=== PATIENT | female | born 1990 | race African-American/Black ===

== ENCOUNTER 2016-02-18 12:50 | Observation (INO) ==
[2016-02-18 14:40] LABS: MANUAL DIFF NEEDED? NO
[2016-02-18 14:42] LABS: BASO% 0.2 % (0.0-0.8); EOS# 0.05 X1000 (0.0-0.7); EOS% 0.6 % (0.0-10.0); HEMATOCRIT 37.8 % (37.0-47.0); HEMOGLOBIN 12.2 g/dL (12.0-16.0); IMM GRAN# 0.02 X1000 (0.0-0.04); IMM GRAN% 0.2 % (0.0-0.5); LYMPH# 1.55 X1000 (1.2-3.4); LYMPH% 17.5 % (20.5-51.1); MCH 26.2 PG (27-31); MCHC 32.3 g/dL (33-37); MCV 81.3 FL (81-99); MONO% 6.8 % (1.7-9.3); MPV 9.9 FL (7.4-10.4); NEUT% 74.7 % (42.2-75.2); PLT 377 X1000 (130-400); RBC 4.65 XMIL (4.2-5.4)
[2016-02-18 14:53] LABS: URINE CULTURE PL NEEDED? NO; URINE SOURCE CLEAN CATCH
[2016-02-18 15:01] LABS: AGAP 9; ALBUMIN 4.5 g/dL (3.5-5.0); ALKALINE PHOSPHATASE 88 U/L (32-104); BUN 9 mg/dL (8-22); CALCIUM 9.7 mg/dL (8.8-10.2); CHLORIDE 99 mmol/L (98-107); COSMO 269; GOT 18 U/L (10-30); GPT 15 U/L (10-36); POTASSIUM 3.9 mmol/L (3.5-5.1); SODIUM 135 mmol/L (136-145); TCO2 27 mmol/L (25-35); TOTAL PROTEIN 7.9 g/dL (6.3-8.3)
[2016-02-18 15:03] LABS: BILIRUBIN URINE NEGATIVE (NEGATIVE); BLOOD URINE 4+ (NEGATIVE); CLARITY CLEAR (CLEAR); COLOR YELLOW; GLUCOSE URINE NEGATIVE (NEGATIVE); LEUKOCYTES URINE NEGATIVE (NEGATIVE); NITRITE URINE NEGATIVE (NEGATIVE); PROTEIN URINE TRACE mg/dL (NEGATIVE); UROBILINOGEN URINE NORMAL
[2016-02-18 15:12] LABS: URINE EPITHELIAL CELLS <10 /HPF (<10); URINE RBC 20-40 /HPF (<10)
--- NOTE | 2016-02-18 15:32 | PROVIDER DOCUMENTATION ---
HPI-Abdominal Pain/GI Problem - General Source: patient - History of Present Illness-ABD Abdominal Pain Onset Location: reports: RLQ, LLQ, suprapubic Pain Radiation: reports: no radiation Quality of Pain: reports: aching Severity in ED: reports: mild Onset/Duration: reports: this morning Modifying Factors: improves with: nothing Associated Symptoms: reports: denies symptoms <Abran Degroot - Last Filed: 02/18/16 17:21> <Mookie Kolb - Last Filed: 02/18/16 19:48> - General Chief Complaint: Abdominal Pain Stated Complaint: AB PAIN Time Seen by Provider: 02/18/16 15:00 Allergies/Adverse Reactions: Patient Allergies Allergy/AdvReac Type Severity Reaction Status Date / Time No Known Allergies Allergy Verified 02/18/16 13:19 Home Medications: No Home Medications 02/18/16 - History of Present Illness-ABD Nature of Presenting Problems: 25 y/o F presents to the ED c/o lower pain. onset this morning. denies n/v/d and all other symptoms. last bm was last night and it was normal. (Abran Degroot) Review of Systems - Adult - REVIEW OF SYSTEMS - ADULT Constitutional: denies: chills, fever, fatique Eyes: reports: no symptoms reported Ears, Nose, Mouth & Throat: reports: no symptoms reported Cardiovascular: denies: chest pain, palpitations Respiratory: denies: cough, shortness of breath, wheezing Gastrointestinal: reports: abdominal pain. denies: diarrhea, nausea, rectal bleeding, vomiting Musculoskeletal: denies: bone pain, back pain Integumentary: denies: itching, rash <Abran Degroot - Last Filed: 02/18/16 17:21> Past History - Adult - PAST MEDICAL HISTORY-ADULT Review of Records: reports: Nursing Assessment Review, Medications Reviewed, Social history reviewed & non-contributory. Major Childhood Illnesses: reports: denies history <Abran Degroot - Last Filed: 02/18/16 17:21> Physical Exam-General - PHYSICAL EXAM-ADULT Initial Vital Signs Reviewed: Yes - CONSTITUTIONAL General Appearance: alert, no apparent distress - EYES Eyes: PERRL/EOMI, pink conjunctivae - HEAD, EARS, NOSE, MOUTH & THROAT HENMT: moist mucous membranes, normal ENT inspection - NECK Neck: full range of motion, normal inspection - RESPIRATORY Respiratory: lungs clear, normal breath sounds, no respiratory distress, no accessory muscle use - CARDIOVASCULAR Cardiovascular: normal peripheral pulses, regular rate, rhythm - GASTROINTESTINAL (ABDOMEN) Abdominal Exam: normal bowel sounds, soft, tenderness (RLQ). negative: abnormal bowel sounds, distended, hernia, mass - SKIN Integumentary: normal color, warm/dry - PSYCHIATRIC Psych/Mental Status: normal mood/affect, oriented x 3 <Abran Degroot - Last Filed: 02/18/16 17:21> Progress - XRAY 1 XRAY Study: Abdomen Impression: Abnormal (constipation) - CHANGE OF SHIFT REPORT (ED Provider) Report Given and Care Transferred to:: Dr Bunch Time of Transfer: 18:00 Items Pending: CT/MRI Results <Abran Degroot - Last Filed: 02/18/16 17:21> - REASSESSMENT Reassessment #1 Time Reassessed: 19:15 Status: unchanged Reassessment Comment: DR ROSAS AT BEDSIDE CONSULTING WITH PT. - CONSULTS/PCP/HOSPITALIST Notification #1 *Consult/PCP/Hospitalist*: DR ROSAS Time Discussed: 18:05 Reason/Comments: DR MATUTE SPOKE WITH DR ROSAS. DR ROSAS WILL SEE PT IN ED. Consult Disposition: Will see in ED <Mookie Kolb - Last Filed: 02/18/16 19:48> - PLAN OF CARE/RESULTS Progress/Plan/Lab Results: CT scan will be ordered due to the amount of tenderness on exam. (Abran Degroot) Departure <Abran Degroot - Last Filed: 02/18/16 17:21> - Departure Time of Disposition Order: 19:47 Certified Medical Emergency: Emergent <Mookie Kolb - Last Filed: 02/18/16 19:48> - Departure DIAGNOSIS: Acute appendicitis Qualifiers: Acute appendicitis type: unspecified acute appendicitis type Qualified Code(s) : K35.80 - Unspecified acute appendicitis Disposition: ADMITTED INPATIENT 09 Condition: Stable Additional Instructions: ED Follow Up Instructions: You have been treated by a care provider in the Emergency Department. These instructions are being provided to you so you can have an understanding of how to care for yourself upon discharge. Upon discharge from the Emergency Department, you are responsible for making arrangements for follow-up care by a physician of your choice. Take all prescribed medications as directed. Return to the Emergency Department immediately for any new or worsening symptoms. You may call the Physician Referral phone number at [phone] to obtain a list of Physicians who are taking new patients. Attestation - Scribe Verification/Attestation Scribe:: Abran Degroot Acting as Scribe for:: Tab Matute Scribe documention review:: This chart was documented by a scribe and accurately reflects the service the provider performed and the decisions made by the provider. <Abran Degroot - Last Filed: 02/18/16 17:21> Physician Attestation
--- NOTE | 2016-02-18 15:48 | Diag Imaging Result Document ---
PROCEDURE NAME: ABDOMEN FLAT/UPRIGHT - 02/18/2016 SUPINE UPRIGHT ABDOMEN: FINDINGS: There is a large amount of retained fecal debris in the colon suggesting constipation. The bowel gas pattern is otherwise unremarkable. There is no free air identified. There is a metallic object at the midline which is compatible with navel ring (jewelry). There is possible mild lumbar levoscoliosis noted. IMPRESSION: Evidence of constipation. Unremarkable bowel gas pattern otherwise. [facility]
[2016-02-18] MEDS ORDERED: ZOSYN 3.375 GM/NS 50 ML IV ONE (19:25)
[2016-02-18] MEDS ORDERED: FENTANYL ONE (20:27)
[2016-02-18] MEDS ORDERED: EPHEDRINE ONE (20:28)
[2016-02-18] MEDS ORDERED: DIPRIVAN 1% ONE ×2 (20:28)
[2016-02-18] MEDS ORDERED: VERSED ONE (20:28)
[2016-02-18] MEDS ORDERED: LR 1,000 ML ONE ×3 (20:38→21:32)
[2016-02-18] MEDS ORDERED: SENSORCAINE 0.25%/EPI 1:200,000 ONE (20:38)
--- NOTE | 2016-02-18 22:27 | OPERATIVE NOTE ---
PROCEDURE DATE: 02/18/2016 PREOPERATIVE DIAGNOSIS: Acute appendicitis. POSTOP DIAGNOSIS: Acute appendicitis. PROCEDURE: Laparoscopic appendectomy. SURGEON: Scott Leal MD. ANESTHESIA: General. ESTIMATED BLOOD LOSS: 10 mL. COMPLICATIONS: None apparent. SPECIMENS: Appendix. FINDINGS: The appendix was swollen and inflamed along its distal 2/3. The base of the appendix was normal in appearance. There was no evidence of perforation or abscess. TECHNIQUE: She was brought to the operating room and placed supine on the table. General anesthesia was induced. A James catheter was placed. She was prepped and draped in usual sterile fashion; 0.25% Marcaine with epinephrine was used to anesthetize our skin incisions. A 12 mm incision was made just below the umbilicus. The fascia was exposed and incised sharply. Entry into the peritoneal cavity was obtained under direct vision with the OptiEchoSign device. Pneumoperitoneum was established. The camera was inserted. There was no evidence of injury to underlying structures. She was placed in Trendelenburg. Two 5 mm incision ports were placed under direct vision, one in the lower midline suprapubic position and one in the left lower quadrant. She was then rotated to her left. I looked in her right lower quadrant and reflected the small bowel and omentum up out of the pelvis and quickly found an obviously inflamed appendix. There was no evidence of any perforation or abscess. I created a window at the base of the appendix 1st using the hook cautery to incise the lateral peritoneum along the mesentery and then using a [place] forceps to bluntly open up a window through the mesentery at the base of the appendix. The appendiceal mesentery was then divided with a laparoscopic Endo-ADOLFO stapler using a vascular staple load. The base of the appendix was then fired with another ADOLFO staple load. The appendix was placed in an EndoCatch bag. Using the suction sap integration architect, irrigated over our staple line, suctioned out the old blood. There was a small amount of minor bloody oozing from the staple line. This was controlled with cautery. I reinspected our staple lines. There were no signs of any leakage or bleeding. The old blood was suctioned out. The appendix and bag were brought out through the umbilical port site. The ports were removed. The abdomen was desufflated. The umbilical fascia was closed with [id number] 0 Vicryl. The skin was closed with running 4-0 subcuticular Monocryl and Steri-Strips. There were no apparent complications. She was awakened in stable condition and transferred to the recovery room.
[2016-02-18] MEDS ORDERED: MORPHINE ONE ×3 (22:49→23:05)
[2016-02-18] MEDS ORDERED: ZOFRAN IV PRN (23:56)
[2016-02-18] MEDS ORDERED: BUPRENEX IV PRN (23:56)
[2016-02-18] MEDS ORDERED: NORCO-10 PO PRN (23:56)
[2016-02-19] MEDS ORDERED: ZOFRAN ONE (08:00)
[2016-02-19] MEDS ORDERED: ZEMURON ONE (08:00)
[2016-02-19] MEDS ORDERED: QUELICIN ONE (08:00)
[2016-02-19] MEDS ORDERED: XYLOCAINE-MPF 2% ONE (08:00)
[2016-02-19] MEDS ORDERED: ROBINUL ONE (08:00)
[2016-02-19] MEDS ORDERED: NEOSTIGMINE ONE (08:00)
[2016-02-19] MEDS ORDERED: DECADRON ONE (08:00)
[2016-02-19 08:54] VITALS: BP 111/66
--- NOTE | 2016-02-19 08:58 | Diag Imaging Result Document ---
PROCEDURE NAME: ABDOMEN/PELVIS W/CONTRAST - 02/18/2016 CT SCAN OF THE ABDOMEN AND PELVIS WITH IV CONTRAST: INDICATION: Lower abdomen pain. Preliminary interpretation was given by the on-call radiologist. FINDINGS: The lung bases are unremarkable. The appendix is distended to 9.7 mm. The wall is enhancing and there is periappendiceal inflammation consistent with acute appendicitis. There is some thickening of the right lateral conal fascia. There is a small amount of free fluid within the pelvis. There is moderate constipation. No small bowel distention is appreciated. There is no abscess or free air. The solid visceral organs are unremarkable except for some probable small subcentimeter cysts in the left kidney. IMPRESSION: Findings consistent with acute appendicitis. The ED Physician was verbally notified by the on-call radiologist at the time of the study.
== END 2016-02-19 09:45 | disposition home or self-care (01) ==
LOC: P.ED 12:50 → P.OPS 21:12 → P.LD 22:44 → P.OPS 02-19 → INTOOBSV 02-19 00:01 → P.WC 02-19 00:01
PROVIDERS: ADMIT Surgery; ATTEND Surgery
DX: K35.80 Unspecified acute appendicitis (principal); R10.31 Right lower quadrant pain; R10.32 Left lower quadrant pain; K59.00 Constipation, unspecified; Z87.891 Personal history of nicotine dependence; E66.01 Morbid (severe) obesity due to excess calories; Z68.41 Body mass index [BMI] 40.0-44.9, adult
CPT/HCPCS: 74020; 74177; 80053; 81001; 81025; 85025; 94799; 96365; J0330; J0592; J1100; J2250; J2270; J2405; J2543; J2710; J3010; J7120; Q9966